=== PATIENT | male | born 1955 | race African-American/Black ===

== ENCOUNTER 2023-12-29 08:57 | Emergency (ER) | payer OTHER ==
[2023-12-29 09:08] VITALS: BP 149/69; PULSE 61; RESP 18; TEMP 98.6; BMI 31.0
[2023-12-29] MEDS ORDERED: amLODIPine BESYLATE 10 MG TABLET (FP) ONE (09:34)
[2023-12-29] MEDS: amLODIPine BESYLATE 10 MG TABLET (FP) PO ONE (09:45)
== END 2023-12-29 10:25 | disposition home or self-care (01) ==
LOC: JERFT 08:57
DX: I10 Essential (primary) hypertension (principal); Z04.1 Encounter for examination and observation following transport accident; V43.52XA Car driver injured in collision with other type car in traffic accident, initial encounter; Y92.410 Unspecified street and highway as the place of occurrence of the external cause
CPT/HCPCS: 99283-25